=== PATIENT | male | born 1970 | race Caucasian/White ===

== ENCOUNTER 2023-08-04 22:11 | Emergency (ER) | payer OTHER, SELFPAY ==
--- NOTE | ~2023-08-04 | XR_ITS ---
EXAMINATION: XR foot RT 2V DATE: 08/04/2023 23:40 INDICATION: Right foot foreign body. TECHNIQUE: 2 views of right foot were obtained. COMPARISON: None. FINDINGS: Bone alignment is normal. No fracture. There is mild osteoarthritis of first metatarsophala ngeal joint. There is a 3 mm radiopaque foreign body overlying the plantar forefoot on the lateral vi ew. IMPRESSION: 1. 3 mm radiopaque foreign body overlying the plantar forefoot on the lateral view. Reviewed, dictated and finalized at location E. IMPRESSION: 1. 3 mm radiopaque foreign body overlying the plantar forefoot on the lateral v iew.
[2023-08-04 22:15] VITALS: BP 120/73; PULSE 98; RESP 16; TEMP 36.3; O2SAT 94
--- NOTE | 2023-08-04 23:37 | ED.GENADULT ---
[facility] - General Adult General Chief complaint: Extremity Injury, Lower Stated complaint: piece of glass in my foot Time Seen by Provider: 08/04/23 22:50 Source: patient Mode of arrival: ambulatory Limitations: no limitations History of Present Illness [facility] narrative: This is a 53-year-old male who presents to the ED with chief complaint of possible foreign body in the foot. He reports he injured his right foot this evening by stepping on a small piece of broken glass accidentally. Reports that 1 got lodged in the plantar surface and he was unable to get it out. Denies any numbness, weakness, further site of pain or injury. Related Data Allergies Allergy/AdvReac Type Severity Reaction Status Date / Time No Known Allergies Allergy Verified 08/04/23 22:39 Review of Systems Review of Systems: All systems as dictated in [facility] Past Medical History Medical History (Updated 08/05/23 @ 00:34 by José Miguel Gallegos PA-C) Acute prostatitis Dysfunction of right eustachian tube Pain of left heel Peritoneal adhesions (postprocedural) (postinfection) Sicca syndrome Family History Family History Mother Family history of thyroid disease Grandparent Family history of coronary artery disease Social History Social History Smoking status: Never smoker Alcohol intake: never Exam Narrative: GENERAL: Well-appearing, well-nourished, and in no acute distress. HEAD: Normocephalic, atraumatic. EYES: PERRLA and EOMI. ENT: Nares clear, no rhinorrhea or epistaxis. Mucous membranes moist. Oropharynx without tonsillar hypertrophy exudate or other lesions. NECK: Supple. No adenopathy or masses. CHEST: No respiratory distress. Clear to auscultation. No wheezes rales or rhonchi HEART: Regular rate and rhythm. No murmur heard. Normal peripheral pulses. ABDOMEN: Soft, nontender, nondistended, normal active bowel sounds. MSK: Normal range of motion. No edema. SKIN: There is obvious foreign body noted to the plantar surface of the distal forefoot. No active bleeding. Mild tenderness. NEURO: Alert and oriented x3. No focal deficits. PSYCH: Normal mood and affect. Course Vital Signs Vital signs: Vital Signs Temperature 97.3 F L 08/04/23 22:15 Pulse Rate 98 08/04/23 22:15 Respiratory Rate 16 08/04/23 22:15 Blood Pressure 120/73 08/04/23 22:15 Pulse Oximetry 94 08/04/23 22:15 Oxygen Delivery Room Air 08/04/23 22:15 Temperature 97.3 F L 08/04/23 22:15 Pulse Rate 98 08/04/23 22:15 Respiratory Rate 16 08/04/23 22:15 Blood Pressure 120/73 08/04/23 22:15 Pulse Oximetry 94 08/04/23 22:15 Oxygen Delivery Room Air 08/04/23 22:15 Procedures Foreign Body Removal Foreign Body #1: Foreign Body Removal Date: 08/05/23 Foreign Body Removal Time: 00:31 Site: right and foot Description of foreign body: other (Glass) Sedation/Analgesia: none Technique: manual removal, removal with forceps and incision made to facilitate removal Confirmed by:: direct visualization Complications: none Post-procedure exam: awake, alert Neurovascular: no signs of compartment syndrome and no change from pre-procedure Medical Decision Making MDM Narrative Medical decision making narrative: This is a 53-year-old male who presents to the ED with chief complaint of possible foreign body to the right foot. Reports he stepped on a piece of glass that it got stuck in the foot. Tetanus status up-to-date. Exam does reveal a very small glass shard in the plantar surface of the right forefoot. X-ray confirms this finding. The area was anesthetized locally and I made a very small brenda with an 11 blade. Was able to extract the glass piece. I visualized the wound bed completely and there was no remaining foreign body. He is going on vacation this wee
== END 2023-08-05 00:40 | disposition home or self-care (01) ==
PROVIDERS: Emergency Provider Physician Assistant; PCP Family Medicine
DX: S90.851A Superficial foreign body, right foot, initial encounter (principal); M35.00 Sjogren syndrome, unspecified; W45.8XXA Other foreign body or object entering through skin, initial encounter; W25.XXXA Contact with sharp glass, initial encounter
CPT/HCPCS: 28190; 73620; 99283